=== PATIENT | female | born 1940 | race Caucasian/White ===

== ENCOUNTER → 2019-10-07 | Outpatient (CLI) | payer BC ==
[~2019-10-07] MED LIST: GADOTERATE 10 MMOL/20 ML VIAL ONE
== END | disposition home or self-care (01) ==
LOC: CFH 12:05
PROVIDERS: ATTEND Family Medicine
DX: I67.82 Cerebral ischemia (principal); G31.9 Degenerative disease of nervous system, unspecified; R51 Headache; R42 Dizziness and giddiness
CPT/HCPCS: 70544; 70549; 70553; A9575